=== PATIENT | male | born 1955 | race African-American/Black ===

== ENCOUNTER 2017-12-08 09:12 | Emergency (ER) | payer MEDICAID, OTHER ==
[~2017-12-08] VITALS: Ht 185.4 cm; Wt 82.0 kg
[2017-12-08 09:25] VITALS: BP 129/84
[2017-12-08] MEDS ORDERED: IBUPROFEN 600MG TABLET PO ONE (10:00)
== END 2017-12-08 11:28 | disposition home or self-care (01) ==
LOC: ER 09:12
DX: M65.4 Radial styloid tenosynovitis [de Quervain] (principal); Z88.6 Allergy status to analgesic agent
CPT/HCPCS: 29125; 73110; 99284

== ENCOUNTER 2019-10-02 20:27 | Emergency (ER) | payer MEDICAID, OTHER ==
[~2019-10-02] VITALS: Ht 182.9 cm; Wt 84.0 kg
[2019-10-02] MEDS ORDERED: SODIUM CHLORIDE 0.9% 500 ML IV ONE (20:45)
[2019-10-02] MEDS ORDERED: METOCLOPRAMIDE HCL 10MG/2ML VIAL IV ONE (20:45)
[2019-10-02] MEDS ORDERED: DIPHENHYDRAMINE 50MG/ML VIAL IV ONE (20:45)
[2019-10-02 22:40] VITALS: BP 119/79
== END 2019-10-02 22:57 | disposition home or self-care (01) ==
LOC: ER 20:27
DX: G43.909 Migraine, unspecified, not intractable, without status migrainosus (principal)
CPT/HCPCS: 96374; 96375; 99284; J1200; J2765; J7040